=== PATIENT | female | born 1955 | race Caucasian/White ===

== ENCOUNTER 2017-04-23 17:02 | Emergency (ER) | payer OTHER ==
[~2017-04-23] VITALS: Ht 170.2 cm; Wt 86.2 kg
[2017-04-23] MEDS ORDERED: BACTRIM DS TAB1 EACH PO (18:31)
[2017-04-23] MEDS ORDERED: KEFLEX500 M1 PO (18:31)
[2017-04-23] MEDS ORDERED: HYDROCODONE-AP1 EAC6 PO (18:31)
[2017-04-23] MEDS ORDERED: DOXYCYCLINE MO100 M1 PO (18:35)
[2017-04-23] MEDS ORDERED: RETIN-A45 G1 TOP (18:44)
[2017-04-23] MEDS ORDERED: TRAMADOL 50 MG50 MG PO (18:59)
[2017-04-23 19:36] VITALS: BP 141/75
== END 2017-04-23 19:37 | disposition home or self-care (01) ==
LOC: M.ERS 17:02
DX: L73.2 Hidradenitis suppurativa (principal); Z88.5 Allergy status to narcotic agent; Z88.8 Allergy status to other drugs, medicaments and biological substances; Z90.710 Acquired absence of both cervix and uterus